=== PATIENT | male | born 1955 | race Caucasian/White ===

== ENCOUNTER 2021-10-09 08:42 | Outpatient (CLI) | payer MEDICARE, OTHER ==
[2021-10-09] MEDS ORDERED: iohexol 300mg/ml 100ml inj. ONE (08:56)
== END 2021-10-09 23:59 | disposition home or self-care (01) ==
LOC: RAD 08:42
PROVIDERS: ATTEND Nurse Practitioner
DX: M19.071 Primary osteoarthritis, right ankle and foot (principal); M77.31 Calcaneal spur, right foot; M62.58 Muscle wasting and atrophy, not elsewhere classified, other site; M72.2 Plantar fascial fibromatosis
CPT/HCPCS: 73701; Q9967

== ENCOUNTER 2022-01-09 05:37 | Day surgery (SDC) | payer MEDICARE, OTHER ==
[2022-01-02 11:47] LABS: BASOPHILS # (AUTO) 0.1 X10'3 (0-0.2); BASOPHILS % (AUTO) 0.9 % (0-1); EOSINOPHILS # (AUTO) 0.2 X10'3 (0-0.9); EOSINOPHILS % (AUTO) 2.6 % (0-6); LYMPHOCYTES # (AUTO) 1.5 X10'3 (1.1-4.8); LYMPHOCYTES % (AUTO) 22.6 % (21-51); MEAN CORPUSCULAR HEMOGLOBIN 30.7 PG (27.0-31.0); MEAN CORPUSCULAR HGB CONC 33.6 g/dL (33.0-36.5); MEAN CORPUSCULAR VOLUME 91.3 FL (78-98); MEAN PLATELET VOLUME 8.4 FL (7.4-10.4); MONOCYTES # (AUTO) 0.7 X10'3 (0-0.9); MONOCYTES % (AUTO) 10.3 % (2-12); NEUTROPHILS # (AUTO) 4.3 X10'3 (1.8-7.7); NEUTROPHILS % (AUTO) 63.6 % (42-75); PRE OP HEMATOCRIT 45.2 % (42.0-52.0); PRE OP HEMOGLOBIN 15.2 g/dL (14.0-17.9); PRE OP PLATELET COUNT 183 X10'3 (140-440); RED BLOOD COUNT 4.94 X10'6 (4.70-6.10); RED CELL DISTRIBUTION WIDTH 14.7 % (11.5-14.5)
[2022-01-02 11:58] LABS: PRE OP PROTIME 10.7 SECONDS (9.0-12.0)
[2022-01-02 11:59] LABS: ALBUMIN 3.8 G/DL (3.4-5.0); ALKALINE PHOSPHATASE 55 IU/L (46-116); BLOOD UREA NITROGEN 23 MG/DL (7-18); BUN/CREATININE RATIO 21.9 (5.4-32.0); CALCIUM 9.3 MG/DL (8.5-10.1); CHLORIDE 108 MMOL/L (99-107); CREATININE 1.05 MG/DL (0.60-1.10); PRE OP ALT 22 U/L (30-65); PRE OP ANION GAP 8 (8-16); PRE OP AST 17 U/L (10-37); PRE OP BILIRUB, TOTAL 0.5 MG/DL (0.0-1.0); PRE OP GLUCOSE 104 MG/DL (70-104); PRE OP POTASSIUM 4.7 MMOL/L (3.4-5.1); PRE OP SODIUM 144 MMOL/L (135-145); TOTAL CARBON DIOXIDE 28.3 MMOL/L (24-32); TOTAL PROTEIN 7.6 G/DL (6.4-8.2); eGFR 71 ML/MIN
[2022-01-02 22:04] LABS: HEMOGLOBIN A1C 6.4 % (4.5-6.2)
[~2022-01-09] VITALS: Ht 182.9 cm; Wt 129.3 kg
[2022-01-09] VITALS (17 sets, daily range): BP systolic 142–177; BP diastolic 85–104
[~2022-01-09 05:37] MED LIST: ASPI-611 PO; DOCUMENT DATE & TIME OF BETA-BLOCKER PO ONE; FLO0.4C PO; INSU100V9 SQ; METF-436 PO; METO-539 PO; ROSU5TAB PO; ceFAZolin inj. 3,000 MG in normal saline 100ml IV soln 100 ML IV ONE; famotidine 20mg tablet PO ONE; ringers solution, lacted 1,000 ML IV SCH
[2022-01-09] MEDS ORDERED: sevoflurane 250ml liquid IH ONE (06:00)
[2022-01-09] MEDS ORDERED: neomy sulf/polymyxin B sulf. GU irrigation 1ml amp IR ONE (06:38)
--- NOTE | 2022-01-09 06:50 | NUR ---
PT WITH 2 QUARTER SIZE WOUNDS ON RIGHT LOWER EXTREMITY PER PATIENT FROM PLAYING WITH HIS DOG. ALSO LONG BLISTER WOUND ON RIGHT LATERAL FOOT PER PT FROM HIS SHOES. PT HAS BILATERAL LOWER EXTREMITY DISCOLORATION, DARK BROWN, PER PT HE HAS HAD THIS FOR OVER 10 YEARS. PT IS DIABETIC. BS THIS MORNING WAS NORMAL, HE DID NOT TAKE HIS LANTUS AT ALL LAST NIGHT. STATES SHE WILL BE GOING HOME, REQUEST MD TO CALL HER AT HOME WITH HER HUSBANDS UPDATE.
[2022-01-09] MEDS ORDERED: fentaNYL /PF 50mcg/ml 5ml ampule ONE (07:29)
[2022-01-09] MEDS ORDERED: MIDAZolam 1 MG/ML 5ML VIAL ONE (07:29)
[2022-01-09] MEDS ORDERED: morphine /PF 1mg/ml 10ml inj. ONE (07:33)
[2022-01-09] MEDS ORDERED: LIDOcaine 2% (20mg/ml) 5ml vial ONE (07:50)
[2022-01-09] MEDS ORDERED: rocuronium 10mg/ml inj IV ONE ×2 (07:50→09:24)
[2022-01-09] MEDS ORDERED: propofol inj 20 ML IV ONE (07:50)
[2022-01-09] MEDS ORDERED: ondansetron/PF 4mg/2ml inj ONE (08:13)
[2022-01-09] MEDS ORDERED: naloxone 0.4 mg/ml inj IV PRN (08:50)
[2022-01-09] MEDS ORDERED: ringers solution, lacted 1,000 ML IV SCH (08:50)
[2022-01-09] MEDS ORDERED: morphine 2 MG/ML inj. syringe IV PRN (08:50)
[2022-01-09] MEDS ORDERED: diphenhydrAMINE 50 mg/ml inj IV PRN (08:50)
[2022-01-09] MEDS ORDERED: proCHLORperazine 10 MG/2 ml inj IV PRN (08:50)
[2022-01-09] MEDS ORDERED: ondansetron/PF 4mg/2ml inj IV PRN ×3 (08:50→09:35)
[2022-01-09] MEDS ORDERED: morphine 4 MG/ML inj SYRINge IV PRN (08:50)
[2022-01-09] MEDS ORDERED: meperidine/PF 25mg/ml syringe IV PRN ×3 (08:50)
[2022-01-09] MEDS ORDERED: naloxone 2mg/2ml inj 2 MG in normal saline 500ml IV soln 500 ML IV PRN (08:50)
[2022-01-09] MEDS ORDERED: glycopyrrolate 0.2mg/ml inj ONE (09:25)
[2022-01-09] MEDS ORDERED: neostigmine methylsulfate 1 MG/ML 10ml vial ONE (09:25)
[2022-01-09] MEDS ORDERED: oxybutynin 5mg tablet PO PRN (09:35)
[2022-01-09] MEDS ORDERED: HYDROcodone/acetaminophen 10/325mg tab PO PRN ×2 (09:35)
[2022-01-09] MEDS: potassium cl 20mEq in 1/2 NS 1,000 ML IV SCH ×3 (09:35→19:37)
[2022-01-09] MEDS ORDERED: HYDROmorphone 1 mg/ml syringe IV PRN (09:35)
[2022-01-09] MEDS ORDERED: opium/belladonna alkaloids No. 15A 30mg rectal suppository RC PRN (09:35)
--- NOTE | 2022-01-09 09:40 | NUR ---
Received from OR via ORTHO BED , accompanied by Anesthesiologist VICKY and report given by Anesthesiolgist. [address] DA[address] WELL SCDS. ART LINE IN LEFT UE WELL 18G PIV IN RIGHT HAND. VSS AT THIS TIME,.ISLAND DRESSING TO LOW ABDOMEN THAT IS CDI. SENSATION LEVEL AT L1 CURRENTLY. Addendum: 01/09/22 at 1002 by Scott Riley RN, RN Amended: Links added.
[2022-01-09] MEDS ORDERED: glucagon, human recombinant 1mg kit SUBCUT PRN (09:45)
[2022-01-09] MEDS ORDERED: insulin Lispro (HumaLOG) vial - multi-dose SQ SCH (09:45)
[2022-01-09] MEDS ORDERED: MESSAGE TO PHARMACY PO ONE (09:45)
[2022-01-09] MEDS ORDERED: dextrose 50%-water 50ml dispensing syringe IV PRN ×2 (09:45)
[2022-01-09] MEDS ORDERED: DEXTROSE 15 GM of carb/4 tabs (each vial/BOTTLE has 4 tablets) PO PRN ×2 (09:45)
--- NOTE | 2022-01-09 10:30 | NUR ---
Patient in room PAS IN 900. I have received report from Scott BOBO in recovery and had the opportunity to ask questions and assume patient care.
--- NOTE | 2022-01-09 10:50 | NUR ---
PATIENT HAS MET ALL CRITERIA FOR TRANSFER TO THE SURGICAL FLOOR. VSS. DRESSINGS INTACT. BED LOW, CALL LIGHT PRESENT AND 2 RAILS UP. RN PRESENT TO ACCEPT CARE OF PATIENT AND REPORT HAS BEEN CALLED. ALL QUESTIONS ANSWERED TO ACCEPTING RN. Addendum: 01/09/22 at 1101 by Scott Alvarez - JIHAN RN Amended: Links added.
[2022-01-09] MEDS ORDERED: Chloraseptic (Phenol) Spray 177ml MM PRN (15:05)
--- NOTE | 2022-01-09 17:21 | NUR ---
called Dr Macias's office regarding pt's incisional bleeding. Spoke to answering services ([email or web address]). passed message regarding incisional wound bleeding. Pt's bottom bottom 1/2 of the island dressing was saturated, on the panus fold, noted 1 staple ozzing blood. Pressure dressing was applied for 1 hr, checked on it after an hr. Bleeding had almost stopped. Called Dr Macias to let him know.
--- NOTE | 2022-01-09 17:30 | NUR ---
Spoke to Dr kern, explained the bleeding situation and she wants us to keep an eye on it. Dr Macias will round in the AM to check on pt. Will pass this along to NOC nurse.
--- NOTE | 2022-01-09 18:30 | NUR ---
Patient in room RG 340. I have received report from Joann BOBO and had the opportunity to ask questions and assume patient care.
[2022-01-09] MEDS: metFORMIN 500mg tablet PO SCH (19:44)
[2022-01-09] MEDS ORDERED: insulin glargine (Lantus) pen - multi-dose SQ SCH (21:00)
[2022-01-10 00:08] VITALS: BP 150/88
[2022-01-10] MEDS: potassium cl 20mEq in 1/2 NS 1,000 ML IV SCH ×2 (02:50→10:50)
[2022-01-10 04:00] VITALS: BP 151/82
--- NOTE | 2022-01-10 06:30 | NUR ---
Problems reprioritized. Patient report given, questions answered & plan of care reviewed with Guero BOBO.
--- NOTE | 2022-01-10 06:37 | NUR ---
Patient in room RG 340. I have received report from PEDRO BOBO and had the opportunity to ask questions and assume patient care.
[2022-01-10] MEDS: metFORMIN 500mg tablet PO SCH (07:30)
[2022-01-10 07:49] VITALS: BP 127/76
[2022-01-10] MEDS ORDERED: atorvastatin 20mg tablet PO SCH (08:00)
[2022-01-10] MEDS ORDERED: tamsulosin 0.4mg capsule PO SCH (08:00)
[2022-01-10 11:31] LABS: BASOPHILS % (AUTO) 0.2 % (0-1); EOSINOPHILS % (AUTO) 0.2 % (0-6); HEMATOCRIT 44.2 % (42.0-52.0); HEMOGLOBIN 14.5 g/dl (14.0-17.9); LYMPHOCYTES # (AUTO) 1.1 X10'3 (1.1-4.8); LYMPHOCYTES % (AUTO) 10.1 % (21-51); MEAN CORPUSCULAR HEMOGLOBIN 30.4 PG (27.0-31.0); MEAN CORPUSCULAR HGB CONC 32.8 g/dL (33.0-36.5); MEAN CORPUSCULAR VOLUME 92.7 FL (78-98); MEAN PLATELET VOLUME 8.8 FL (7.4-10.4); MONOCYTES # (AUTO) 1.3 X10'3 (0-0.9); MONOCYTES % (AUTO) 11.4 % (2-12); NEUTROPHILS # (AUTO) 8.7 X10'3 (1.8-7.7); NEUTROPHILS % (AUTO) 78.1 % (42-75); PLATELET COUNT 159 X10'3 (140-440); RED BLOOD COUNT 4.77 X10'6 (4.70-6.10); WHITE BLOOD COUNT 11.1 X10'3 (4.5-11.0)
[2022-01-10 11:37] LABS: ALBUMIN 3.2 G/DL (3.4-5.0); ANION GAP 10 (8-16); BLOOD UREA NITROGEN 17 MG/DL (7-18); BUN/CREATININE RATIO 13.8 (5.4-32.0); CALCIUM 8.9 MG/DL (8.5-10.1); CHLORIDE 102 MMOL/L (99-107); CREATININE 1.23 MG/DL (0.60-1.10); GLUCOSE 127 MG/DL (70-104); POTASSIUM 4.4 MMOL/L (3.5-5.1); SODIUM 137 MMOL/L (135-145); TOTAL CARBON DIOXIDE 24.8 MMOL/L (24-32); eGFR 59 ML/MIN
[2022-01-10 11:49] VITALS: BP 129/73
[2022-01-10] MEDS ORDERED: DOCU-148 PO (13:13)
[2022-01-10] MEDS ORDERED: HYDR-3972 PO (13:13)
--- NOTE | 2022-01-10 17:15 | NUR ---
PATIENT DISCHARGED HOME WITH DAIGLE CATHETER, PATIENT AND WERE IN ROOM FOR EDUCATIONS ON DAIGLE AND TEACHING ON HOW TO CHANGE CLEAN AND MONITOR DAIGLE. PATIENT LEFT WITH A CALL OUT TO DR. GE TO CALL IN PAIN CONTROL. PATIENT LEFT WITH ALL BELONGINGS AT DISCHARGE AND NIGHT TIME AND LEG BAG. PATIENT FAMILY TRANSPORTED PATIENT HOME IN PRIVATE VEHICLE.
[2022-01-11] MEDS ORDERED: docusate sod 250mg capsule PO SCH (08:00)
== END 2022-01-10 17:15 | disposition home or self-care (01) ==
LOC: PAS IN 05:37 → PAS 05:37 → UNDOADMIN 05:37 → EDSTATUS 07:30 → SUR 3N 10:45 → PAS IN 10:45 → UNDODISIN 01-10 17:15 → PAS 01-10 17:15
PROVIDERS: ATTEND Urology
DX: N32.0 Bladder-neck obstruction (principal); I11.0 Hypertensive heart disease with heart failure; I50.9 Heart failure, unspecified; G47.30 Sleep apnea, unspecified; E11.9 Type 2 diabetes mellitus without complications; I48.91 Unspecified atrial fibrillation; E66.9 Obesity, unspecified; Z68.41 Body mass index [BMI] 40.0-44.9, adult; Z87.891 Personal history of nicotine dependence; Z20.822 Contact with and (suspected) exposure to COVID-19; Z79.899 Other long term (current) drug therapy; Z79.01 Long term (current) use of anticoagulants; Z98.42 Cataract extraction status, left eye; Z98.890 Other specified postprocedural states; Z85.46 Personal history of malignant neoplasm of prostate; Z80.0 Family history of malignant neoplasm of digestive organs; Z83.3 Family history of diabetes mellitus
CPT/HCPCS: 36415; 53899; 71046; 80048; 80053; 82948; 83036; 85025; 85610; 85730; 86885; 86900; 86901; 86920; 87081; A6402; C1758; C1769; J0690; J1815; J2250; J2274; J2405; J2704; J2710; J3010; J3480; J3490; J7030; J7120; U0003; U0005; Z7506; Z7508; Z7512; A4338; A4355; A4357; A4618; A7000; G0378

== ENCOUNTER 2024-12-23 11:12 | Emergency (ER) | payer MEDICARE, OTHER ==
[~2024-12-23] VITALS: Ht 182.9 cm; Wt 134.0 kg
[~2024-12-23 11:12] MED LIST changes: +APIX5TAB3 PO; -ASPI-611 PO; -DOCUMENT DATE & TIME OF BETA-BLOCKER PO ONE; +FURO40TA4 PO; +ROSU10TA72 PO; -ROSU5TAB PO; -ceFAZolin inj. 3,000 MG in normal saline 100ml IV soln 100 ML IV ONE; -famotidine 20mg tablet PO ONE; -ringers solution, lacted 1,000 ML IV SCH
[2024-12-23 12:32] VITALS: BP 148/88; PULSE 84; RESP 18; TEMP 98.2; O2SAT 96
== END 2024-12-23 12:34 | disposition home or self-care (01) ==
LOC: ER 11:13
DX: S09.8XXA Other specified injuries of head, initial encounter (principal); I48.91 Unspecified atrial fibrillation; Z79.01 Long term (current) use of anticoagulants; Z79.4 Long term (current) use of insulin; Z79.899 Other long term (current) drug therapy; X58.XXXA Exposure to other specified factors, initial encounter; Y93.89 Activity, other specified; Y92.89 Other specified places as the place of occurrence of the external cause; Y99.8 Other external cause status
CPT/HCPCS: 99281; 99282